=== PATIENT | female | born 1975 | race Caucasian/White ===

== ENCOUNTER 2016-11-21 09:33 | Outpatient (CLI) ==
[2016-07-29 10:58] VITALS: BMI 30.7
--- NOTE | 2016-11-21 11:02 | CT ---
EXAM: CT soft tissue neck with contrast. HISTORY: Pharyngitis. Reported abnormal uptake in the tonsils on recent PET scan. Ovarian cancer. COMPARISON: None available. TECHNIQUE: Multiple axial images of the neck were obtained following intravenous administration of 75 mL of Omnipaque 350, low osmolar. Images were reformatted in the sagittal and coronal plane. FINDINGS: No intracranial or intraorbital abnormality identified. The parotid and submandibular glands are symmetric. Thyroid gland is homogeneous. There is mild symmetric prominence of the palatine tonsils. Coarse calcification is seen in the rig ht palatine tonsil on axial image 43. No localized mass, fluid collection or peritonsillar edema id entified. The epiglottis and laryngeal structures appear unremarkable. Airway is normal in caliber . The vascular structures of the neck are patent. Scattered small lymph nodes present throughout t he neck. No lymphadenopathy identified. There is septal emphysematous changes seen in the lung apices. Multiple mediastinal lymph nodes are present which measure less than 1 cm short axis. No acute osseous abnormality identified. IMPRESSION: 1. Mild symmetric prominence of the palatine tonsils. Right tonsillar calcification likely due to prior inflammation. 2. No discrete mass or lymphadenopathy identified. Consider direct inspection.
== END 2016-11-21 09:34 | disposition home or self-care (01) ==
LOC: RAD 09:33
PROVIDERS: ATTEND Internal Medicine
DX: J02.8 Acute pharyngitis due to other specified organisms (principal)

== ENCOUNTER 2017-03-20 08:12 | Emergency (ER) ==
[2017-03-20 08:20] VITALS: BP 136/90; BMI 30.9
--- NOTE | 2017-03-20 08:33 | ED.PDOC ---
General ED Provider: Dr. NABEEL AMAYA JR Chief Complaint: Back Pain Stated Complaint: was diagnosed with ovarian cancer one year ago with surgical intervention and told all was removed-sees in [place] regularly for follow up--onset lower left back pain yesterday similar to sx at onset--saw in [place] 1 month ago and had "bad uti"--[End]98.2 82 20 97% 136/90 11/13 left back pain[End]has problem walking at times--appetite poor some meals--fatigue noted[End] Time Seen by Physician: 08:33 Mode of Arrival: Walk-In Information Source: Patient Exam Limitations: No limitations Primary Care Provider: ELIDA PINA Nursing and Triage Documentation Reviewed and Agree: No Review of Systems - Review Of Systems Constitutional: Reports: Chills, Malaise Eyes: Reports: No symptoms Ears, Nose, Mouth, Throat: Reports: No symptoms Respiratory: Reports: No symptoms Cardiac: Reports: No symptoms GI: Reports: Abdominal pain (INTERMITTENNT) : Reports: Hematuria (NOTED DROPS OF BLOOD IN TOILET CLOTS LAST WEEK UNSURE IF PASSING SAME HERSELF) Musculoskeletal: Reports: Back pain (LEFT CVAT) Skin: Reports: No symptoms Neurological: Reports: Anxiety, Headache (HISTORY OF MIGRAINES DOES NOT WISH TO USE OPIATES DUE TO BROTHER), Weakness Endocrine: Reports: No symptoms Hematologic/Lymphatic: Reports: No symptoms All Other Systems: Other Past Medical History - Past Medical History Endocrine: Reports: Dyslipidemia Cardiovascular: Reports: CAD, Hypertension Respiratory: Reports: None Hematological: Reports: None Gastrointestinal: Reports: GERD, Liver (ELEVATED LIVER ENZYMES) Genitourinary: Reports: None Neuro/Psych: Reports: Migraine (as a child. 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, GRANULOSA CELL TUMOR), Tubal ligation, (x 1), Cholecystectomy , Orthopedic ( CARPAL TUNNEL), Other (CYST REMOVAL FROM BACK OF LEFT LEG) - Family History Family History: Reports: None - Social History Smoking Status: Current every day smoker, Light tobacco smoker Hx Substance Use: No Alcohol Screening: None Physical Exam - Physical Exam Appearance: Well-appearing, Obese Pain Distress: Moderate Eyes: JOSE, EOMI, Conjunctiva clear ENT: Ears normal, Nose normal, Oropharynx normal Neck: Supple Respiratory: Airway patent, Breath sounds clear, Breath sounds equal, Respirations nonlabored Cardiovascular: RRR, Pulses normal, No rub, No murmur GI/: Soft, No masses, Bowel sounds normal, No Organomegaly, Tender Musculoskeletal: Normal strength, ROM intact, No edema, No calf tenderness ( TENDER LEFT CVA) Critical Care Note - Critical Care Note Total Time (mins): 0 Course - Course Hematology/Chemistry: 03/20/17 09:21 03/20/17 09:35 Orders, Labs, Meds: Lab Review 03/20/17 03/20/17 03/20/17 08:35 09:21 09:35 WBC 8.33 RBC 4.80 Hgb 15.0 Hct 43.2 MCV 90.0 MCH 31.3 H MCHC 34.7 RDW Coeff of Tank 14.2 Plt Count 234 Immature Gran % (Auto) 0.4 Neut % (Auto) 58.5 Lymph % (Auto) 26.7 Elliott % (Auto) 10.0 Eos % (Auto) 3.6 Baso % (Auto) 0.8 Immature Gran # (Auto) 0.0 Neut # 4.9 Lymph # 2.2 Elliott # 0.8 Eos # 0.3 Baso # 0.1 Sodium 138 Potassium 4.0 Chloride 105 Carbon Dioxide 22 Anion Gap 15.0 BUN 16 Creatinine 0.83 Estimated GFR (MDRD) 75.00 BUN/Creatinine Ratio 19.27 Glucose 104 Calcium 9.8 Total Bilirubin 0.46 AST 25 ALT 61 Alkaline Phosphatase 168 H Total Protein 7.5 Albumin 4.0 Globulin 3.5 Albumin/Globulin Ratio 1.14 Amylase 43 Lipase 17 Urine Color Yellow Urine Clarity Clear Urine pH 5.5 Ur Specific Remer 1.020 Urine Protein Negative Urine Glucose (UA) Negative Urine Ketones Negative Urine Blood Negative Urine Nitrite Negative Urine Bilirubin Negative Urine Urobilinogen 0.2 Ur Leukocyte Esterase Negative Orders Category Date Time Status NPO REMINDER: IMAGING ONCE CARE 03/20/17 09:22 Completed ED IV/MEDIPORT/POWERPORT .ONCE EMERGENCY 03/20/17 09:21 Active AMYLASE Stat LAB 03/20/17 09:35 Completed CBC W/ AUTO DIFF Stat LAB 03/20/17 09:21 Completed COMPREHENSIVE METABOLIC PANEL Stat LAB 03/20/17 09:35 Completed LIPASE Stat LAB 03/20/17 09:35 Completed UA [URINALYSIS C & S IF INDICATED] Stat LAB 03/20/17 08:35 Completed 0.9 % Sodium Chloride [Saline Flush] MEDS 03/20/17 09:21 Discontinued 1 syr IVF PRN PRN CT ABDOMEN/PELVIS W/WO CONTRAS Stat RADS 03/20/17 09:22 Completed Medications Discontinued Medications Generic Name Dose Route Start Last Admin Trade Name Freq PRN Reason Stop Dose Admin Sodium Chloride 1 syr 03/20/17 09:21 Saline Flush IVF PRN PRN To flush IV Vital Signs: Temp Pulse Resp BP Pulse Ox 03/20/17 09:25 98.3 F 03/20/17 08:12 98.2 F 82 20 136/90 97 Departure - Departure Time of Disposition: 11:30 Disposition: HOME SELF-CARE Discharge Problem: Backache, Ovarian cancer in remission Instructions: Flank Pain (ED), Back Pain (ED) Condition: Stable Pt referred to PMD for follow-up: Yes Additional Instructions: CALL ONCOLOGY TODAY AND INFORM OF SYMPTOMS AND SCHEDULE FOLLOW UP FOLLOW UP WITH GI SCHEDULED CONSIDER REPEAT SCANS WHEN ONCOLOGY FEELS TIME IS CORRECT Prescriptions: Naproxen [Naprosyn] 500 mg PO Q12HR PRN #30 tablet PRN Reason: PAIN Cyclobenzaprine HCl [Flexeril] 5 mg PO TID PRN #15 tablet PRN Reason: Spasms Allergies/Adverse Reactions: Allergies codeine Adverse Reaction (Verified 03/20/17 08:23) N/V Home Medications: Ambulatory Orders Esomeprazole Magnesium [Nexium] 40 mg PO QAM 08/31/13 Aspirin [Aspirin EC] 81 mg PO DAILYWM 04/09/14 Losartan/Hydrochlorothiazide [Hyzaar 50-12.5 Tablet] 1 each PO DAILY 04/09/14 Cyclobenzaprine HCl [Flexeril] 5 mg PO TID PRN #15 tablet 03/20/17 Naproxen [Naprosyn] 500 mg PO Q12HR PRN #30 tablet 03/20/17
[2017-03-20 08:58] LABS: BILIRUBIN,URINE Negative (NEGATIVE); KETONES,URINE Negative (NEGATIVE); LEUKOCYTE ESTERASE ,URINE Negative (NEGATIVE); NITRITE,URINE Negative (NEGATIVE); PH,URINE 5.5 (5-9); PROTEIN,URINE Negative (NEGATIVE); URINE, BLOOD Negative (NEGATIVE)
[2017-03-20 08:59] LABS: ADD URINE MICROSCOPIC NO
[2017-03-20 09:36] LABS: BASOPHILS # (AUTO) 0.1 K/uL (0-0.2); BASOPHILS % (AUTO) 0.8 % (0.0-3.0); EOSINOPHILS # (AUTO) 0.3 K/ul (0.0-0.7); EOSINOPHILS % (AUTO) 3.6 % (0.0-7.0); HEMATOCRIT 43.2 % (37.0-47.0); IMMATURE GRANULOCYTE % (AUTO) 0.4 % (0.0-5.0); LYMPHOCYTES # (AUTO) 2.2 K/uL (0.60-3.4); LYMPHOCYTES % (AUTO) 26.7 (10.0-50.0); MEAN CORPUSCULAR HEMOGLOBIN 31.3 pg (27.0-31.0); MEAN CORPUSCULAR HGB CONC 34.7 (31.8-35.4); MONOCYTES # (AUTO) 0.8 K/uL (0.4-2.0); NEUTROPHILS # (AUTO) 4.9 K/ul (2.0-6.9); NEUTROPHILS % (AUTO) 58.5; PLATELET COUNT 234 10^3/uL (140-440); WHITE BLOOD COUNT 8.33 K/ul (4.6-10.2)
[2017-03-20 09:58] LABS: ALBUMIN/GLOBULIN RATIO 1.14; BILIRUBIN,TOTAL 0.46 mg/dL (0.00-1.20); BUN/CREATININE RATIO 19.27; CALCIUM 9.8 mg/dL (8.2-10.2); CREATININE 0.83 mg/dL (0.60-1.30); TOTAL PROTEIN 7.5 g/dL (6.4-8.2)
[2017-03-20 10:44] VITALS: TEMP 98.3
--- NOTE | 2017-03-20 10:52 | CT ---
EXAM: CT of the abdomen pelvis with and without contrast History: Left flank pain, history of ovarian cancer. Comparison: CT abdomen pelvis 07/29/2016 Technique: Multiplanar CT images through the abdomen pelvis were obtained with and without the admi nistration of IV contrast Findings: Lung bases are free of consolidation. No acute osseous abnormalities. No renal stones and no hydronephrosis. The appendix is normal. No ureteral calculi. Status post ch olecystectomy. Multiple small bilateral renal cysts measuring up to 1.3 cm on the left and 0.5 cm o n the right. No bladder wall thickening. Pancreas is within normal limits. No focal liver or spleni c lesions. Adrenal glands are unremarkable. Nondilated fluid filled loops of small bowel. No evid ence for bowel obstruction. A few small retroperitoneal lymph nodes, similar to the prior study but not pathologically enlarged according to size criteria. The uterus and ovaries are not seen and like ly surgically removed. No perirectal inflammation. Impression: 1. No acute intra-abdominal or pelvic process. 2. Small bilateral renal cysts. 3. Status post hysterectomy. 4. No malignant findings.
== END 2017-03-20 11:39 | disposition home or self-care (01) ==
LOC: ED 08:12
DX: M54.5 Low back pain (principal); Z85.43 Personal history of malignant neoplasm of ovary; R10.9 Unspecified abdominal pain; R31.9 Hematuria, unspecified; R53.1 Weakness; F17.210 Nicotine dependence, cigarettes, uncomplicated; Z79.899 Other long term (current) drug therapy
CPT/HCPCS: 36415; 80053; 81001; 82150; 83690; 85025; 99283

== ENCOUNTER 2017-03-21 10:37 | Emergency (ER) ==
[2017-03-21 10:45] VITALS: BP 136/86; TEMP 98.3; BMI 30.7
[2017-03-21] MEDS ORDERED: MORPHINE 4 MG/ML SYRINGE IM STA (10:49)
[2017-03-21] MEDS ORDERED: DECADRON 4 MG/ML SDV IM STA (10:49)
[2017-03-21] MEDS ORDERED: ZOFRAN 4 MG/2 ML IM STA (10:49)
[2017-03-21] MEDS ORDERED: VALIUM SYRINGE IM STA (10:50)
--- NOTE | 2017-03-21 14:54 | ED.PDOC ---
General ED Provider: Dr. GISELLA RENTERIA Chief Complaint: Back Pain Stated Complaint: back pain lumbar Time Seen by Physician: 10:39 Mode of Arrival: Walk-In Information Source: Patient Exam Limitations: No limitations Primary Care Provider: ELIDA PINA Nursing and Triage Documentation Reviewed and Agree: Yes Musculoskeletal Complaint Exam - Back Pain Complaint/Exam Mechanism of Injury: Reports: No known trauma Onset/Duration: 1 day Symptoms Are: Still present Timing: Intermittent Episodes Lasting: Hours Initial Severity: Severe Current Severity: Severe Location: Reports: Discrete Character: Reports: Aching, Spasmodic, Stiffness Aggravating: Reports: Movements, Lifting, Bending, Walking Alleviating: Reports: Rest, Position Related History: Reports: Similar episode TAD Risk Factors: Reports: Hypertension AAA Risk Factors: Reports: None Cauda Equina Risk Factors: Reports: None Epidural Abcess Risk Factors: Reports: None Related Surgical History: Reports: None Focal Tenderness: No Paraspinal Muscle Tenderness: No Paraspinal Muscle Spasm: No Scoliosis: No Lordosis: No Kyphosis: No Focal Sensory Loss: Present: None Gait: Present: Abnormal Differential Diagnoses: Strain, Sprain Review of Systems - Review Of Systems Constitutional: Reports: No symptoms Eyes: Reports: No symptoms Ears, Nose, Mouth, Throat: Reports: No symptoms Respiratory: Reports: No symptoms Cardiac: Reports: No symptoms GI: Reports: No symptoms : Reports: No symptoms Musculoskeletal: Reports: Back pain Skin: Reports: No symptoms Neurological: Reports: No symptoms Endocrine: Reports: No symptoms Hematologic/Lymphatic: Reports: No symptoms All Other Systems: Reviewed and Negative Past Medical History - Past Medical History Endocrine: Reports: Dyslipidemia Cardiovascular: Reports: CAD, Hypertension Respiratory: Reports: None Hematological: Reports: None Gastrointestinal: Reports: GERD, Liver (ELEVATED LIVER ENZYMES) Genitourinary: Reports: None Neuro/Psych: Reports: Migraine (as a child. 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, GRANULOSA CELL TUMOR), Tubal ligation, (x 1), Cholecystectomy , Orthopedic ( CARPAL TUNNEL), Other (CYST REMOVAL FROM BACK OF LEFT LEG) - Family History Family History: Reports: None - Social History Smoking Status: Current every day smoker, Light tobacco smoker Hx Substance Use: No Alcohol Screening: None Physical Exam - Physical Exam Appearance: Well-appearing, No pain distress, Well-nourished Eyes: JOSE, EOMI, Conjunctiva clear ENT: Ears normal, Nose normal, Oropharynx normal Respiratory: Airway patent, Breath sounds clear, Breath sounds equal, Respirations nonlabored Cardiovascular: RRR, Pulses normal, No rub, No murmur GI/: Soft, Nontender, No masses, Bowel sounds normal, No Organomegaly Musculoskeletal: Normal strength, ROM intact, No edema, No calf tenderness Skin: Warm, Dry, Normal color Neurological: Sensation intact, Motor intact, Reflexes intact, Cranial nerves intact, Alert, Oriented Psychiatric: Affect appropriate, Mood appropriate Critical Care Note - Critical Care Note Total Time (mins): 0 Course - Course Orders, Labs, Meds: Orders Category Date Time Status Dexamethasone 4 mg/ml Inj [Decadron 4 mg/ml Sdv] MEDS 03/21/17 10:49 Discontinued 8 mg IM ONCE STA Diazepam Syringe [Valium Syringe] MEDS 03/21/17 10:50 Discontinued 4 mg IM ONCE STA Morphine Sulfate [Morphine 4 mg/ml Syringe] MEDS 03/21/17 10:49 Discontinued 4 mg IM ONCE STA Ondansetron HCl/Pf [Zofran 4 mg/2 ml] MEDS 03/21/17 10:49 Discontinued 4 mg IM ONCE STA MRI LUMBAR SPINE W/O CONTRAST Stat RADS 03/21/17 11:29 Ordered MRI THORACIC SPINE W/O CONTRA Stat RADS 03/21/17 11:29 Ordered Medications Discontinued Medications Generic Name Dose Route Start Last Admin Trade Name Lucinda PRN Reason Stop Dose Admin Dexamethasone Sodium Phosphate 8 mg 03/21/17 10:49 03/21/17 11:18 Decadron 4 Mg/Ml Sdv IM 03/21/17 10:50 8 mg ONCE STA Administration Diazepam 4 mg 03/21/17 10:50 03/21/17 11:22 Valium Syringe IM 03/21/17 10:51 4 mg ONCE STA Administration Morphine Sulfate 4 mg 03/21/17 10:49 03/21/17 11:21 Morphine 4 Mg/Ml Syringe IM 03/21/17 10:50 4 mg ONCE STA Administration Ondansetron HCl 4 mg 03/21/17 10:49 03/21/17 11:22 Zofran 4 Mg/2 Ml IM 03/21/17 10:50 4 mg ONCE STA Administration Vital Signs: Temp Pulse Resp BP Pulse Ox 03/21/17 10:38 98.3 F 100 H 20 136/86 97 Departure - Departure Time of Disposition: 14:53 Disposition: HOME SELF-CARE Discharge Problem: Backache Low back pain Qualifiers: Chronicity: unspecified Instructions: Low Back Strain (ED), Acute Low Back Pain (ED) Condition: Good Pt referred to PMD for follow-up: No Additional Instructions: Please call your Family Physician as soon as possible to schedule a follow-up appointment. Allergies/Adverse Reactions: Allergies codeine Adverse Reaction (Verified 03/20/17 08:23) N/V Home Medications: Ambulatory Orders Esomeprazole Magnesium [Nexium] 40 mg PO QAM 08/31/13 Aspirin [Aspirin EC] 81 mg PO DAILYWM 04/09/14 Losartan/Hydrochlorothiazide [Hyzaar 50-12.5 Tablet] 1 each PO DAILY 04/09/14 Cyclobenzaprine HCl [Flexeril] 5 mg PO TID PRN #15 tablet 03/20/17 Naproxen [Naprosyn] 500 mg PO Q12HR PRN #30 tablet 03/20/17 Hydrocodone/Acetaminophen [[place] 5-325 Tablet] 1 each PO Q6HR PRN #10 tablet
--- NOTE | 2017-03-21 15:05 | MRI ---
EXAM: MRI lumbar spine without IV contrast. DATE: 03/21/2017. HISTORY: Lumbar back pain. TECHNIQUE: Sagittal and axial T1W and T2W sequences of the lumbar spine along with sagittal IR and coronal T2W sequences were obtained using 1.2 Amalia magnet. No IV contrast. COMPARISON: MRI T-spine 03/21/2017. CT abdomen/pelvis 03/20/2017.. FINDINGS: There are five [id number] lumbar vertebra. Alignment of the lumbar spine is normal. No acute lumbar fracture, subluxation, osseous malignancy, or pars interarticularis defect is iden tified. Lumbar vertebra are normal in height. T2W/T1W bright, 7.6 mm focus in the L5 vertebral bod y is likely a benign hemangioma. Bone marrow signal is normal. Disc desiccation without significan t disc space narrowing is observed at L4-5 and L5-S1. No sacral fracture or stress reaction is evide nt. SI joints are unremarkable. Conus medullaris terminates at T12-L1. Visible spinal cord is norm al. No retroperitoneal lymphadenopathy, paraspinal mass, or aortic aneurysm is detected. Paraspinal mus culature is symmetric bilaterally. Visible portions of the liver, spleen, pancreas adrenal glands a nd right kidney are normal. T2W bright, T1W dark, 15 mm focus in the anterior cortex midzone left k idney and several 4-5 mm T2W bright, T1W dark foci in the posterior cortex midzone left kidney are c onsistent with benign cysts. Segmental analysis: T12-L1: Normal. L1-2: Normal. L2-3: Minimal concentric disc bulge and minor facet arthropathy cause triangulation of the canal, m ild right foraminal stenosis, and minor left foraminal narrowing. A T2W bright, T1W dark, 6 mm focu s at the posterolateral margin of the right facet is consistent with benign synovial cyst. L3-4: Small concentric disc bulge (asymmetrically prominent in the left foraminal to far lateral re gion vs superimposed 2 x 12 mm disc protrusion) and mild facet arthropathy cause mild central canal stenosis, minimal right foraminal narrowing, and mild left foraminal stenosis. Left L3 nerve root c ontacts the disc bulge/protrusion near the lateral margin of the foramen. L4-5: Moderate concentric disc bulge, mild bilateral facet arthropathy, and mild ligamentum flavum hypertrophy cause mild central canal stenosis, moderate right foraminal stenosis, and mild left fora john stenosis. L5-S1: Minor concentric disc bulge, superimposed midline disc protrusion (2.5 mm AP c 11 mm transve rse), and mild facet arthropathy cause mild central canal stenosis and mild left foraminal stenosis. Left L5 nerve root may contact the disc bulge near the lateral margin of the foramen. IMPRESSIONS: 1. Lumbar spine mild facet arthropathy and DDD. 2. Multilevel central canal stenoses (L2-3: Minor. L3-4: Mild. L4-5: Mild. L5-S1: Mild). 3. Multilevel foraminal stenoses as described. Left L3 and left L5 nerve roots contact disc bulges /protrusions near the foramen, and may be sources for pain/radiculopathy. 4. Benign hemangioma in the L5 vertebral body. 5. Left kidney benign-appearing cortical cysts. Note: Report faxed to ER physician at 1500 hrs, 03/21/2017.
--- NOTE | 2017-03-21 15:14 | MRI ---
EXAM: MRI thoracic spine without IV contrast. DATE: 03/21/2017. HISTORY: Thoracic back pain. TECHNIQUE: Sagittal and axial T1W and T2W sequences of the lumbar spine along with sagittal IR and coronal T2W sequences were obtained using 1.2 Amalia magnet. No IV contrast. COMPARISON: MRI L-spine 03/21/2017. CT abdomen/pelvis 03/20/2017. PA/lateral chest 04/09/2014. FINDINGS: There are 12 thoracic vertebra with paired ribs. Mild rightward curvature of the mid/low er thoracic spine is observed. No acute T-spine fracture, subluxation, osseous malignancy, or jumpe d facet is evident. Thoracic vertebra are normal in height. Anterolateral osteophytes are noted in the mid thoracic spine. T2W/T1W bright, 18.5 mm focus in the T10 body is likely a benign hemangiom a. Bone marrow signal is overall normal. Thoracic intervertebral discs are normal in height. Conus medullaris terminates at T12-L1. Thoracic spinal cord reveals no syrinx, cord edema, myelomalacia, or neoplasm. No acute rib fracture, rib lesion, chest wall mass, or paraspinal neoplasm is evident. Visible thyr oid gland, trachea, mainstem bronchi, thoracic esophagus, and thoracic aorta are normal. No mediast inal or hilar lymphadenopathy, lung mass, pneumonia, or pleural effusion is demonstrated. Visible p ortions of the liver, spleen, and right adrenal gland are normal. A 7.5 x 8 mm fullness in the left adrenal jay may be artifact since there is no corresponding abnormality on recent CT scan. A 15 m m,and several 4-5 mm T2W bright cysts are noted in the left kidney. A subcapsular 4 mm diameter, T2 W bright focus in the anterior cortex upper pole right kidney is likely a benign cyst as well. No p ancreatic neoplasm is apparent. Small hiatal hernia is suspected. Segmental analysis: T1-2: Normal. T2-3: Normal. T3-4: Normal. T4-5: Normal. T5-6: Normal. T6-7: Minimal posterior disc bulge (1 mm AP x 6 mm transverse) does not contact the cord rest; conte aide, cord is slightly flattened left anterolaterally. No central canal stenosis or foraminal stenos is. T7-8: Normal. T8-9: Normal. T9-10: Normal, except for minimal facet arthropathy T10-11: Normal, except for minor facet arthropathy. T11-12: Normal. T12-L1: Normal. IMPRESSIONS: 1. Thoracic spine minor spondylosis, mild dextroscoliosis, minor facet arthropathy, and minor DDD. 2. No thoracic central canal stenosis or cord compression at rest. 3. Benign hemangioma in the T10 vertebra. 4. Benign appearing bilateral renal cysts. Note: Report faxed to ER physician at 1508 hrs, 03/21/2017.
== END 2017-03-21 15:00 | disposition home or self-care (01) ==
LOC: ED 10:37
DX: M54.5 Low back pain (principal); F17.210 Nicotine dependence, cigarettes, uncomplicated
CPT/HCPCS: 96372; 99283